=== PATIENT | male | born 1970 | race Hispanic/Latino ===

== ENCOUNTER 2022-06-08 14:50 | Outpatient (CLI) | payer BC ==
[2022-06-08 15:53] LABS: Hemoglobin 14.7 g/dL (13.5-17.5); Mean Corpuscular HGB CONC 34.3 g/dL (32.0-36.0); Mean Corpuscular Hemoglobin 30.6 pg (27.0-33.0); Mean Corpuscular Volume 89.4 fl (81.2-95.1); Mean Platelet Volume 10.8 fl (7.4-10.4); Platelet Count 232 10x3/uL (150-450); RBC Distribution Width 12.5 % (11.5-14.5); White Blood Cell (WBC) Count 5.6 10x3/uL (3.5-10.5)
[2022-06-08 16:07] LABS: INR-International Normal Ratio 0.9; PTT 26.6 sec (22.0-33.0); Prothrombin Time 10.3 sec (9.5-12.1)
[2022-06-08 16:09] LABS: Anion Gap 16 mmol/L (10-20); BUN (Urea Nitrogen) 12 mg/dL (8.9-20.6); Calc. Creatinine Clearance 0 mL/min (70-130); Calcium 9.5 mg/dL (7.8-10.44); Carbon Dioxide 25 mmol/L (22-29); Chloride 103 mmol/L (98-107); Estimated GFR 58; Glucose 109 mg/dL (70-105); Sodium 140 mmol/L (136-145)
[2022-06-08 20:07] LABS: Hemoglobin A1c 5.4 % (4.0-6.0)
== END 2022-06-08 14:51 | disposition home or self-care (01) ==
LOC: LABBT 14:50
PROVIDERS: ATTEND Urology
DX: Z01.818 Encounter for other preprocedural examination (principal); Z12.5 Encounter for screening for malignant neoplasm of prostate; N48.1 Balanitis; R35.0 Frequency of micturition
CPT/HCPCS: 80048; 83036; 85027; 85610; 85730; 93005; 93010

== ENCOUNTER → 2022-06-10 | Day surgery (SDC) | payer BC ==
[2022-06-09 10:50] VITALS: BMI 29.2
== END | disposition home or self-care (01) ==
LOC: SDC 08:45
PROVIDERS: ATTEND Urology
DX: N48.1 Balanitis (principal); Z53.9 Procedure and treatment not carried out, unspecified reason; Z79.899 Other long term (current) drug therapy

== ENCOUNTER 2022-06-24 10:15 | Outpatient (CLI) | payer BC ==
[2022-06-24 11:59] LABS: Hemoglobin 15.5 g/dL (13.5-17.5); Mean Corpuscular HGB CONC 33.7 g/dL (32.0-36.0); Mean Corpuscular Hemoglobin 30.1 pg (27.0-33.0); Mean Corpuscular Volume 89.3 fl (81.2-95.1); Platelet Count 254 10x3/uL (150-450); RBC Distribution Width 12.4 % (11.5-14.5); Red Blood Cell (RBC) Count 5.15 10x6/uL (4.32-5.72); White Blood Cell (WBC) Count 6.4 10x3/uL (3.5-10.5)
[2022-06-24 12:09] LABS: PTT 29.6 sec (22.0-33.0); Prothrombin Time 10.4 sec (9.5-12.1)
[2022-06-24 12:11] LABS: Anion Gap 16 mmol/L (10-20); BUN (Urea Nitrogen) 16 mg/dL (8.9-20.6); Calc. Creatinine Clearance 0 mL/min (70-130); Calcium 9.4 mg/dL (7.8-10.44); Carbon Dioxide 26 mmol/L (22-29); Chloride 102 mmol/L (98-107); Estimated GFR 59; Glucose 98 mg/dL (70-105); Potassium 4.2 mmol/L (3.5-5.1); Sodium 140 mmol/L (136-145)
[2022-06-24 12:14] LABS: Bilirubin Neg (Negative); Blood, Urine 250 (Negative); Clarity Slightly Cloudy (Clear); Glucose, Urine (Dipstick) Normal (Negative); Ketone, Urine Negative (Negative); Leukocyte Negative (Negative); Nitrite Negative (Negative); Protein, Urine (Dipstick) 100 mg/dl (Neg-Trace); Specific Gravity, Urine 1.025 (1.005-1.030); Urobilinogen Normal mg/dL (Less than 2)
[2022-06-24 12:21] LABS: Bacteria/HPF 1+ HPF (None Seen); Squamous Epithelial 0-3 HPF (0-3)
[2022-06-24 12:22] LABS: Cellular Cast 0-3 LPF (None Seen)
[2022-06-24 12:23] LABS: RBC/HPF 21-50 HPF (0-3)
== END 2022-06-24 10:16 | disposition home or self-care (01) ==
LOC: LABBT 10:15
PROVIDERS: ATTEND Urology
DX: Z01.812 Encounter for preprocedural laboratory examination (principal); N48.1 Balanitis
CPT/HCPCS: 80048; 81001; 85027; 85610; 85730; 87086

== ENCOUNTER 2022-07-08 08:37 | Day surgery (SDC) | payer BC ==
[2022-07-07 10:17] VITALS: BMI 30.5
[2022-07-08] MEDS ORDERED: Levofloxacin 500 mg/D5W 100 ml Premix Bag ONE (09:23)
[2022-07-08] MEDS ORDERED: Bacitracin Zinc Ointment 30 gm TUBE ONE (10:55)
[2022-07-08] MEDS ORDERED: fentaNYL PF 100 MCG/2 ML SYRINGE ONE (10:56)
[2022-07-08] MEDS ORDERED: Bupivacaine 0.25% HCL 30 ML VIAL ONE (11:01)
[2022-07-08] MEDS ORDERED: PROPOFOL 200 MG/20 ML VIAL ONE (11:13)
[2022-07-08] MEDS ORDERED: Dexamethasone 20 MG/5 ML VIAL ONE (11:13)
[2022-07-08] MEDS ORDERED: Lidocaine 1% PF 5 ML VIAL ONE (11:13)
[2022-07-08] MEDS ORDERED: Ondansetron PF 4 MG/2 ML Vial ONE (11:13)
[2022-07-08] MEDS ORDERED: Phenazopyridine HCl 100 MG TAB ONE (12:38)
== END 2022-07-08 15:56 | disposition home or self-care (01) ==
LOC: SDC 08:37
PROVIDERS: ATTEND Urology
PROC: 0TJB8ZZ Inspection of Bladder, Via Natural or Artificial Opening Endoscopic (ICD-10-PCS; principal; 2022-07-08)
PROC: 0VBSXZX Excision of Penis, External Approach, Diagnostic (ICD-10-PCS; principal; 2022-07-08)
PROC: 0VTTXZZ Resection of Prepuce, External Approach (ICD-10-PCS; principal; 2022-07-08)
DX: N48.1 Balanitis (principal); N28.9 Disorder of kidney and ureter, unspecified; R31.29 Other microscopic hematuria; Z79.899 Other long term (current) drug therapy; Z88.0 Allergy status to penicillin
CPT/HCPCS: 88304; 88305; 88312; J1100; J1956; J2405; J2704; S0020